=== PATIENT | male | born 1950 | race Two or more races ===

== ENCOUNTER 2019-09-28 09:48 | Inpatient (IN) | payer MEDICARE ==
[~2019-09-28] VITALS: Ht 177.8 cm; Wt 77.2 kg
[~2019-09-28 09:48] MED LIST: AMIO200T4 PO; AMOX500T86 PO; APIX5TAB PO; ASPI81CH43 PO; BISA-13 PO; CAR125T PO; DOXY-111 PO; FAMO20TA10 PO; FURO40TA4 PO; GLIP5TAB12 PO; LISI-648 PO
[2019-09-28] MEDS ORDERED: MIDAZOLAM HCL 5 MG/ML-1ML VIAL ONE (10:02)
[2019-09-28] MEDS ORDERED: MIDAZOLAM DRIP 50 mg/50mL 50 ML IV ONE (10:03)
[2019-09-28] MEDS ORDERED: NOREPINEPHRINE 8 MG/250ML KIT 250 ML IV ONE (10:03)
[2019-09-28] MEDS ORDERED: SODIUM CHLORIDE 0.9% 1,000 ML IVB ONE (10:33)
[2019-09-28] MEDS ORDERED: ACETAMINOPHEN 650 MG RECT SUPP PR ONE (10:35)
[2019-09-28] MEDS ORDERED: ACETAMINOPHEN 325 MG TAB PO ONE (10:45)
[2019-09-28] MEDS ORDERED: MIDAZOLAM HCL 5 MG/ML-1ML VIAL IV ONE (11:15)
[2019-09-28] MEDS: NOREPINEPHRINE 8 MG/250ML KIT 250 ML IV SCH ×3 (11:43→17:02)
[2019-09-28] MEDS: MIDAZOLAM DRIP 50 mg/50mL 50 ML IV SCH (11:59)
[2019-09-28 12:37] LABS: Lactic Acid w/Reflex 3.3 mmol/L (0.4-2.0)
[2019-09-28 12:48] LABS: BUN/Creatinine Ratio 12.8; Bilirubin, Total 2.4 mg/dL (0.2-1.0); Magnesium 2.5 mg/dL (1.6-2.6); Total Protein 5.4 g/dL (6.4-8.2)
[2019-09-28 13:02] LABS: Potassium 6.2 mmol/L (3.5-5.1)
[2019-09-28] MEDS ORDERED: SODIUM BICARBONATE 8.4 % INJ 50ML VIAL IV ONE (14:00)
[2019-09-28] MEDS ORDERED: CALCIUM CHL 100MG/ML 1,000 MG in D5W 5% 100 ML IV ONE (14:00)
[2019-09-28 14:16] VITALS: BP 105/75
[2019-09-28 15:52] VITALS: BP 105/75
[2019-09-28 16:21] VITALS: BP 135/81
[2019-09-28 16:59] LABS: INR 1.18 (0.9-1.15); Partial Thromboplastin Time 34.8 sec (23.0-31.2)
[2019-09-28 17:13] LABS: Hematocrit 38.5 % (41.0-53.0); Mean Corpuscular Hemoglobin 32.1 pg (28.0-32.0); Mean Corpuscular Hgb Conc. 31.3 g/dL (32.0-36.0); Mean Corpuscular Volume 102.6 fL (80.0-100.0); Platelet Count (auto) 144 10^3/uL (140-450); Red Blood Cells 3.75 10^6/uL (4.5-5.90); Red Cell Distribution Width 15.1 % (11.8-14.3)
[2019-09-28 17:15] LABS: Basophils % (manual) 0 (0.0-2.0); Blast Cells 0; Eosinophils % (manual) 0 (0-7); Metamyelocytes % 0; Myelocytes % 0; Promyelocytes % 0; Reactive Lymphocytes 0
[2019-09-28 17:50] LABS: Band Neutrophils % (manual) 20; Lymphocytes % (manual) 2 (10.0-50.0)
[2019-09-28 17:51] LABS: Monocytes % (manual) 4 (0-12)
[2019-09-28] MEDS ORDERED: cefTRIAXone 1GM/50ML D5W 50 ML IV ONE ×2 (18:15→19:00)
[2019-09-28] MEDS ORDERED: AMIODARONE 450mg/250ml AE 250 ML IV SCH (18:28)
[2019-09-28] MEDS ORDERED: ACETAMINOPHEN 500 MG TAB PO PRN (18:30)
[2019-09-28] MEDS ORDERED: DEXTROSE (50%) 50ML SYRG IV ONE (18:30)
[2019-09-28] MEDS ORDERED: SODIUM CHLORIDE 0.9% 2,250 ML IV ONE (18:30)
[2019-09-28] MEDS ORDERED: AMIODARONE HCL 150 MG in D5W 5% 100 ML IV ONE (18:30)
[2019-09-28] MEDS ORDERED: NITROGLYCERIN 0.4 MG SL TAB SL PRN (18:30)
[2019-09-28] MEDS ORDERED: SODIUM ZIRCONIUM CYCL 10 GM PAK GT ONE (18:30)
[2019-09-28] MEDS ORDERED: SODIUM BICARBONATE 8.4% INJ 50ML SYRINGE IV ONE (18:30)
[2019-09-28] MEDS ORDERED: MORPHINE SULF INJ 2 MG/ML SYRINGE 1ML IV PRN ×2 (18:30→19:00)
[2019-09-28] MEDS ORDERED: InsuLIN REG 1unit/0.01ml Soln (100units/ml) IV ONE (18:30)
[2019-09-28] MEDS ORDERED: FUROSEMIDE 40 MG/4 ML VIAL IV ONE (18:30)
[2019-09-28 18:40] VITALS: BP 112/77
[2019-09-28] MEDS ORDERED: METOPROLOL TARTRATE 1MG/1ML-5ML VIAL IV ONE (18:45)
[2019-09-28] MEDS ORDERED: ONDANSETRON HCL 4 MG/2 ML VIAL IV PRN (19:00)
[2019-09-28] MEDS: SODIUM CHLORIDE 0.9% 1,000 ML IV SCH (19:55)
[2019-09-28] MEDS: DexAMETHasone SOD PHOS 10MG/1ML VIAL INJ IV SCH (20:48)
[2019-09-28 20:50] LABS: Amylase 94 U/L (25-115); Lipase 24 U/L (73-393)
[2019-09-28 21:12] LABS: CRP High Sensitivity > 19.0 mg/dL (< 0.3)
[2019-09-28] MEDS: ASCORBIC ACID 1,000 MG TAB PO SCH (21:46)
[2019-09-28] MEDS: ZINC SULFATE 220mg CAP or TAB PO SCH (21:47)
[2019-09-28] MEDS: CHOLECALCIFEROL (VITD3) 2,000 UNIT CAP PO SCH (21:48)
[2019-09-28] MEDS ORDERED: ALBUTEROL SULF HFA 90MCG INH 200DOSE IN SCH (22:00)
[2019-09-28 22:04] VITALS: BP 94/66
[2019-09-29] VITALS (39 sets, daily range): BP systolic 79–155; BP diastolic 45–123
[2019-09-29] MEDS ORDERED: ENOXAPARIN SOD 80 MG/0.8ML SYRINGE SC SCH (01:30)
[2019-09-29] MEDS: AMIODARONE 450mg/250ml AE 250 ML IV SCH ×2 (01:50→15:28)
[2019-09-29 01:57] LABS: BUN/Creatinine Ratio 13.3; Calcium 7.3 mg/dL (8.5-10.1)
[2019-09-29 02:48] LABS: Potassium 6.7 mmol/L (3.5-5.1)
[2019-09-29] MEDS: SODIUM CHLORIDE 0.9% 1,000 ML IV SCH (04:58)
[2019-09-29] MEDS ORDERED: SODIUM BICARBONATE 50ML VIAL 100 ML in SODIUM CHLORIDE 0.9% 1,000 ML IV SCH (07:00)
[2019-09-29] MEDS ORDERED: SODIUM CHLORIDE 0.9% 1,000 ML IV ONE (07:00)
[2019-09-29] MEDS ORDERED: SODIUM BICARBONATE 8.4 % INJ 50ML VIAL IV ONE ×2 (07:03→15:45)
[2019-09-29 07:12] LABS: Eosinophils # (auto) 0 10 ^3/uL (0-0.8); Hematocrit 41.6 % (41.0-53.0); Hemoglobin 13.1 g/dL (13.5-17.5); Lymphocytes # (auto) 0.3 10 ^3/uL (0.4-5.4); Neutrophils % (auto) 94.7 % (37.0-80.0); Nucleated Red Blood Cells % 0.1 %
[2019-09-29 07:14] LABS: Basophils # (auto) 0 10 ^3/uL (0-0.2); Basophils % (auto) 0.1 % (0.0-2.0); Eosinophils % (auto) 0.2 % (0.0-7.0); Lymphocytes % (auto) 1.3 % (10.0-50.0); Mean Corpuscular Hemoglobin 32.5 pg (28.0-32.0); Mean Corpuscular Hgb Conc. 31.4 g/dL (32.0-36.0); Mean Corpuscular Volume 103.4 fL (80.0-100.0); Monocytes # (auto) 0.9 10 ^3/uL (0-1.3); Monocytes % (auto) 3.7 % (0.0-12.0); Platelet Count (auto) 150 10^3/uL (140-450); Red Blood Cells 4.03 10^6/uL (4.5-5.90); Red Cell Distribution Width 15.3 % (11.8-14.3); White Blood Cell 23.2 10^3/uL (4.4-10.8)
[2019-09-29 07:55] LABS: Albumin 2.2 g/dL (3.4-5.0); Bilirubin, Total 1.7 mg/dL (0.2-1.0); Calcium 7.3 mg/dL (8.5-10.1); Total Protein 6.2 g/dL (6.4-8.2)
[2019-09-29] MEDS ORDERED: cefTRIAXone 1GM/50ML D5W 50 ML IV SCH (09:00)
[2019-09-29] MEDS ORDERED: DEXTROSE (50%) 50ML SYRG IV ONE ×2 (09:15→15:45)
[2019-09-29] MEDS ORDERED: InsuLIN REG 1unit/0.01ml Soln (100units/ml) IV ONE ×2 (09:15→15:45)
[2019-09-29] MEDS ORDERED: CALCIUM CHL 100MG/ML 1,000 MG in D5W 5% 100 ML IV ONE (09:15)
[2019-09-29] MEDS ORDERED: InsuLIN REG 1unit/0.01ml Soln (100units/ml) ONE (09:32)
[2019-09-29] MEDS: DexAMETHasone SOD PHOS 10MG/1ML VIAL INJ IV SCH (09:57)
[2019-09-29] MEDS: ASCORBIC ACID 1,000 MG TAB PO SCH (10:00)
[2019-09-29] MEDS: ZINC SULFATE 220mg CAP or TAB PO SCH (10:00)
[2019-09-29] MEDS ORDERED: SODIUM ZIRCONIUM CYCL 10 GM PAK GT SCH (10:00)
[2019-09-29] MEDS: CHOLECALCIFEROL (VITD3) 2,000 UNIT CAP PO SCH (10:00)
[2019-09-29] MEDS ORDERED: FUROSEMIDE 100 MG/10ML VIAL IV ONE (11:00)
[2019-09-29] MEDS: SODIUM BICARBONATE 50ML VIAL 100 ML in SOD CHL 0.45% 1,000 ML IV SCH ×2 (11:00→22:00)
[2019-09-29] MEDS ORDERED: AMIODARONE HCL 150 MG in D5W 5% 100 ML IV ONE (11:45)
[2019-09-29] MEDS ORDERED: PHENYLEPHRINE IV 250 ML IV SCH (11:45)
[2019-09-29] MEDS: PHENYLEPHRINE INJ 40 MG in SODIUM CHL 0.9% 250 ML IV SCH (11:56)
[2019-09-29] MEDS: MIDAZOLAM DRIP 50 mg/50mL 50 ML IV SCH (11:59)
[2019-09-29 12:30] LABS: Creatinine, Urine 127 mg/dL (30.0-125.0); Sodium Urine 33 mmol/L (40-220)
[2019-09-29 12:50] LABS: Protein, Urine 450.9 mg/dL (0.0-11.9)
[2019-09-29] MEDS ORDERED: CLOPIDOGREL BISULFATE 75 MG TAB PO ONE (13:45)
[2019-09-29] MEDS ORDERED: ASPirin 81 mg TAB PO ONE (13:45)
[2019-09-29] MEDS: SODIUM ZIRCONIUM CYCL 10 GM PAK PO SCH ×2 (14:00→22:27)
[2019-09-29] MEDS ORDERED: LIDOCAINE 50MG/5ML INJ 5ML SYRINGE IV ONE (14:30)
[2019-09-29] MEDS: DIGOXIN (250MCG/ML) 2 ML AMPULE IV SCH ×2 (14:30→21:00)
[2019-09-29] MEDS ORDERED: LIDOCAINE 4MG/ML IV SOLN 500 ML IV SCH (14:30)
[2019-09-29 15:00] LABS: BUN/Creatinine Ratio 14.5; Calcium 7.7 mg/dL (8.5-10.1)
[2019-09-29 15:16] LABS: Potassium 6.5 mmol/L (3.5-5.1)
[2019-09-29 15:21] LABS: Urine Bacteria NONE SEEN /hpf (None Seen); Urine Blood 3+ /uL (Negative); Urine Mucus FEW (None Seen); Urine Specific Gravity 1.017 (1.001-1.035); Urine WBC 59 /hpf (0 - 3)
[2019-09-29] MEDS ORDERED: ALBUTEROL SULF 2.5 MG/0.5ML(0.5%) NEB SOLN NEB ONE (15:45)
[2019-09-29] MEDS ORDERED: CALCIUM GLUC 4.65meq/50ml D5AE 50 ML IV ONE (15:45)
[2019-09-29] MEDS ORDERED: MICAFUNGIN SODIUM 100 MG in SODIUM CHL 0.9% 100 ML IV ONE (16:15)
[2019-09-29] MEDS ORDERED: SODIUM CHLORIDE 0.9% 1,000 ML IV SCH (16:15)
[2019-09-29] MEDS ORDERED: HYDROCORTISONE SOD SUCC 100 MG/2ML INJ VIAL IV ONE (16:15)
[2019-09-29] MEDS ORDERED: PANTOPRAZOLE 40 MG/10 ML VIAL INJ IV ONE (16:30)
[2019-09-29] MEDS: LINEZOLID 600MG/300ML 300 ML IV SCH (19:00)
[2019-09-29 19:30] LABS: BUN/Creatinine Ratio 14.8; Calcium 7.4 mg/dL (8.5-10.1)
[2019-09-29 19:38] LABS: Potassium 5.7 mmol/L (3.5-5.1)
[2019-09-29] MEDS: MEROPENEM 500MG IVPB 50 ML IV SCH (22:26)
[2019-09-29] MEDS: HYDROCORTISONE SOD SUCC 100 MG/2ML INJ VIAL IV SCH (22:27)
[2019-09-30] VITALS (94 sets, daily range): BP systolic 85–133; BP diastolic 54–97
[2019-09-30 01:54] LABS: Calcium 6.8 mg/dL (8.5-10.1)
[2019-09-30 01:56] LABS: Potassium 5.8 mmol/L (3.5-5.1)
[2019-09-30] MEDS: SODIUM BICARBONATE 50ML VIAL 100 ML in SOD CHL 0.45% 1,000 ML IV SCH ×3 (03:45→20:42)
[2019-09-30 04:52] LABS: Basophils # (auto) 0 10 ^3/uL (0-0.2); Basophils % (auto) 0.1 % (0.0-2.0); Eosinophils # (auto) 0 10 ^3/uL (0-0.8); Hematocrit 38.3 % (41.0-53.0); Hemoglobin 12.3 g/dL (13.5-17.5); Lymphocytes # (auto) 0.3 10 ^3/uL (0.4-5.4); Lymphocytes % (auto) 1.6 % (10.0-50.0); Mean Corpuscular Hemoglobin 32.6 pg (28.0-32.0); Mean Corpuscular Hgb Conc. 32.2 g/dL (32.0-36.0); Mean Corpuscular Volume 101.2 fL (80.0-100.0); Monocytes # (auto) 1.4 10 ^3/uL (0-1.3); Monocytes % (auto) 6.5 % (0.0-12.0); Neutrophils # (auto) 19.6 10 ^3/uL (1.6-8.6); Neutrophils % (auto) 91.8 % (37.0-80.0); Nucleated Red Blood Cells % 0.3 %; Platelet Count (auto) 128 10^3/uL (140-450); Red Blood Cells 3.78 10^6/uL (4.5-5.90); White Blood Cell 21.4 10^3/uL (4.4-10.8)
[2019-09-30 05:08] LABS: Calcium 6.8 mg/dL (8.5-10.1)
[2019-09-30 05:17] LABS: BUN/Creatinine Ratio 15.9
[2019-09-30] MEDS: PHENYLEPHRINE INJ 40 MG in SODIUM CHL 0.9% 250 ML IV SCH ×2 (05:41→21:16)
[2019-09-30] MEDS: SODIUM ZIRCONIUM CYCL 10 GM PAK PO SCH ×3 (05:41→21:37)
[2019-09-30] MEDS: AMIODARONE 450mg/250ml AE 250 ML IV SCH ×3 (06:28→20:42)
[2019-09-30] MEDS: LINEZOLID 600MG/300ML 300 ML IV SCH ×2 (06:34→18:51)
[2019-09-30] MEDS: MIDAZOLAM DRIP 50 mg/50mL 50 ML IV SCH ×2 (06:35→16:19)
[2019-09-30] MEDS: MICAFUNGIN SODIUM 100 MG in SODIUM CHL 0.9% 100 ML IV SCH (09:06)
[2019-09-30] MEDS ORDERED: DEXTROSE (50%) 50ML SYRG IV ONE (10:30)
[2019-09-30] MEDS ORDERED: BUMETANIDE 2.5mg/10ml (0.25 mg/ml) INJ IV ONE ×2 (10:30)
[2019-09-30] MEDS ORDERED: InsuLIN REG 1unit/0.01ml Soln (100units/ml) IV ONE (10:30)
[2019-09-30] MEDS ORDERED: CALCIUM GLUC 4.65meq/50ml D5AE 50 ML IV ONE (10:30)
[2019-09-30] MEDS: PANTOPRAZOLE 40 MG/10 ML VIAL INJ IV SCH (10:41)
[2019-09-30] MEDS: HYDROCORTISONE SOD SUCC 100 MG/2ML INJ VIAL IV SCH ×2 (10:42→21:37)
[2019-09-30] MEDS: ASPirin 81 mg TAB PO SCH (10:42)
[2019-09-30] MEDS: CLOPIDOGREL BISULFATE 75 MG TAB PO SCH (10:43)
[2019-09-30] MEDS: ASCORBIC ACID 1,000 MG TAB PO SCH (10:44)
[2019-09-30] MEDS: CHOLECALCIFEROL (VITD3) 2,000 UNIT CAP PO SCH (10:44)
[2019-09-30] MEDS: ENOXAPARIN SOD 30 MG/0.3 ML SYRINGE SC SCH (10:45)
[2019-09-30] MEDS: MEROPENEM 500MG IVPB 50 ML IV SCH ×2 (11:49→21:38)
[2019-09-30] MEDS: FUROSEMIDE INJECTION 100 MG in D5W 5% 100 ML IV SCH ×4 (11:49→23:01)
[2019-09-30 14:44] LABS: BUN/Creatinine Ratio 18.1; Calcium 6.6 mg/dL (8.5-10.1); Potassium 4.9 mmol/L (3.5-5.1)
[2019-10-01] VITALS (93 sets, daily range): BP systolic 90–125; BP diastolic 48–79
[2019-10-01] MEDS: FUROSEMIDE INJECTION 100 MG in D5W 5% 100 ML IV SCH ×4 (04:01→17:41)
[2019-10-01 04:35] LABS: Basophils # (auto) 0 10 ^3/uL (0-0.2); Basophils % (auto) 0.1 % (0.0-2.0); Eosinophils # (auto) 0 10 ^3/uL (0-0.8); Hematocrit 36.2 % (41.0-53.0); Hemoglobin 11.8 g/dL (13.5-17.5); Lymphocytes # (auto) 0.3 10 ^3/uL (0.4-5.4); Lymphocytes % (auto) 2.5 % (10.0-50.0); Mean Corpuscular Hemoglobin 32.6 pg (28.0-32.0); Mean Corpuscular Hgb Conc. 32.6 g/dL (32.0-36.0); Monocytes # (auto) 0.6 10 ^3/uL (0-1.3); Monocytes % (auto) 4.3 % (0.0-12.0); Neutrophils # (auto) 12.1 10 ^3/uL (1.6-8.6); Neutrophils % (auto) 93.1 % (37.0-80.0); Nucleated Red Blood Cells % 0.2 %; Platelet Count (auto) 105 10^3/uL (140-450); Red Blood Cells 3.62 10^6/uL (4.5-5.90); Red Cell Distribution Width 14.8 % (11.8-14.3)
[2019-10-01 04:56] LABS: Potassium 4.1 mmol/L (3.5-5.1)
[2019-10-01 05:07] LABS: Albumin 1.8 g/dL (3.4-5.0); BUN/Creatinine Ratio 21.1; Bilirubin, Total 0.8 mg/dL (0.2-1.0); Total Protein 4.9 g/dL (6.4-8.2)
[2019-10-01 05:15] LABS: Calcium 5.7 mg/dL (8.5-10.1)
[2019-10-01 06:13] LABS: INR 1.66 (0.9-1.15); Partial Thromboplastin Time 41.4 sec (23.0-31.2)
[2019-10-01] MEDS: LINEZOLID 600MG/300ML 300 ML IV SCH (06:49)
[2019-10-01] MEDS: SODIUM BICARBONATE 50ML VIAL 100 ML in SOD CHL 0.45% 1,000 ML IV SCH (06:49)
[2019-10-01] MEDS: MIDAZOLAM DRIP 50 mg/50mL 50 ML IV SCH ×2 (06:49→21:30)
[2019-10-01] MEDS: MICAFUNGIN SODIUM 100 MG in SODIUM CHL 0.9% 100 ML IV SCH (08:21)
[2019-10-01] MEDS ORDERED: SODIUM CHLORIDE 0.9% 1,000 ML IV SCH (09:15)
[2019-10-01] MEDS: ASPirin 81 mg TAB PO SCH (09:56)
[2019-10-01] MEDS: CLOPIDOGREL BISULFATE 75 MG TAB PO SCH (09:56)
[2019-10-01] MEDS: PANTOPRAZOLE 40 MG/10 ML VIAL INJ IV SCH (09:56)
[2019-10-01] MEDS: ENOXAPARIN SOD 30 MG/0.3 ML SYRINGE SC SCH (09:56)
[2019-10-01] MEDS: MEROPENEM 500MG IVPB 50 ML IV SCH ×2 (09:56→21:36)
[2019-10-01] MEDS: HYDROCORTISONE SOD SUCC 100 MG/2ML INJ VIAL IV SCH ×2 (09:56→21:36)
[2019-10-01] MEDS: SODIUM BICARBONATE 50ML VIAL 50 ML in SOD CHL 0.45% 1,000 ML IV SCH ×3 (10:54→22:00)
[2019-10-01] MEDS: NYSTATIN (MOUTH-THROAT) 500,000 UNITS/5 ML SUSP MT SCH ×3 (11:58→21:36)
[2019-10-01] MEDS: AMIODARONE 450mg/250ml AE 250 ML IV SCH (12:49)
[2019-10-01] MEDS: CALCIUM ACETATE 667 MG CAP NG SCH ×2 (13:27→21:36)
[2019-10-01] MEDS: PHENYLEPHRINE INJ 40 MG in SODIUM CHL 0.9% 250 ML IV SCH (21:39)
[2019-10-02] VITALS (103 sets, daily range): BP systolic 94–143; BP diastolic 59–89
[2019-10-02] MEDS: FUROSEMIDE INJECTION 100 MG in D5W 5% 100 ML IV SCH ×4 (04:30→08:32)
[2019-10-02] MEDS: AMIODARONE 450mg/250ml AE 250 ML IV SCH (04:30)
[2019-10-02 05:21] LABS: Basophils # (auto) 0 10 ^3/uL (0-0.2); Basophils % (auto) 0.2 % (0.0-2.0); Eosinophils # (auto) 0 10 ^3/uL (0-0.8); Hematocrit 41.5 % (41.0-53.0); Hemoglobin 13.6 g/dL (13.5-17.5); Lymphocytes # (auto) 0.4 10 ^3/uL (0.4-5.4); Lymphocytes % (auto) 3.4 % (10.0-50.0); Mean Corpuscular Hemoglobin 32.3 pg (28.0-32.0); Mean Corpuscular Hgb Conc. 32.8 g/dL (32.0-36.0); Mean Corpuscular Volume 98.6 fL (80.0-100.0); Monocytes # (auto) 0.6 10 ^3/uL (0-1.3); Monocytes % (auto) 5.4 % (0.0-12.0); Neutrophils # (auto) 10.1 10 ^3/uL (1.6-8.6); Nucleated Red Blood Cells % 0.2 %; Platelet Count (auto) 122 10^3/uL (140-450); Red Blood Cells 4.21 10^6/uL (4.5-5.90); Red Cell Distribution Width 14.4 % (11.8-14.3); White Blood Cell 11.1 10^3/uL (4.4-10.8)
[2019-10-02 05:41] LABS: Potassium 3.4 mmol/L (3.5-5.1)
[2019-10-02 05:50] LABS: Albumin 1.7 g/dL (3.4-5.0); BUN/Creatinine Ratio 29.4; Bilirubin, Total 0.8 mg/dL (0.2-1.0); Calcium 6.6 mg/dL (8.5-10.1); Total Protein 4.8 g/dL (6.4-8.2)
[2019-10-02] MEDS: SODIUM BICARBONATE 50ML VIAL 50 ML in SOD CHL 0.45% 1,000 ML IV SCH ×2 (06:15→08:32)
[2019-10-02] MEDS: CALCIUM ACETATE 667 MG CAP NG SCH ×3 (06:29→21:43)
[2019-10-02] MEDS: NYSTATIN (MOUTH-THROAT) 500,000 UNITS/5 ML SUSP MT SCH ×4 (06:29→21:43)
[2019-10-02] MEDS: MIDAZOLAM DRIP 50 mg/50mL 50 ML IV SCH (06:30)
[2019-10-02] MEDS: PHENYLEPHRINE INJ 40 MG in SODIUM CHL 0.9% 250 ML IV SCH (06:36)
[2019-10-02] MEDS: MICAFUNGIN SODIUM 100 MG in SODIUM CHL 0.9% 100 ML IV SCH (08:31)
[2019-10-02] MEDS ORDERED: POTASSIUM CHLORIDE 40 MEQ, LIDOCAINE 1% (LOCAL ANESTH.) 4 ML in SODIUM CHL 0.9% 100 ML IV ONE (10:00)
[2019-10-02] MEDS ORDERED: POTASSIUM EFFERVESENT TAB 25 MEQ PO ONE (10:00)
[2019-10-02] MEDS: MEROPENEM 500MG IVPB 50 ML IV SCH ×2 (10:19→21:43)
[2019-10-02] MEDS: ENOXAPARIN SOD 30 MG/0.3 ML SYRINGE SC SCH (10:35)
[2019-10-02] MEDS: CLOPIDOGREL BISULFATE 75 MG TAB PO SCH (10:35)
[2019-10-02] MEDS: ASPirin 81 mg TAB PO SCH (10:35)
[2019-10-02] MEDS: HYDROCORTISONE SOD SUCC 100 MG/2ML INJ VIAL IV SCH ×2 (10:35→21:43)
[2019-10-02] MEDS: PANTOPRAZOLE 40 MG/10 ML VIAL INJ IV SCH (10:35)
[2019-10-02 10:52] LABS: Magnesium 2.4 mg/dL (1.6-2.6); Phosphorus 7.6 mg/dL (2.5-4.90)
[2019-10-02] MEDS ORDERED: FUROSEMIDE INJECTION 100 MG in D5W 5% 100 ML IV SCH (13:15)
[2019-10-02] MEDS: CARVEDILOL 3.125 MG TAB PO SCH (21:43)
[2019-10-03] VITALS (85 sets, daily range): BP systolic 123–184; BP diastolic 33–104
[2019-10-03 04:55] LABS: Basophils # (auto) 0 10 ^3/uL (0-0.2); Basophils % (auto) 0.3 % (0.0-2.0); Eosinophils # (auto) 0 10 ^3/uL (0-0.8); Hematocrit 45.1 % (41.0-53.0); Hemoglobin 14.9 g/dL (13.5-17.5); Lymphocytes # (auto) 0.4 10 ^3/uL (0.4-5.4); Mean Corpuscular Hemoglobin 32.6 pg (28.0-32.0); Mean Corpuscular Hgb Conc. 33.1 g/dL (32.0-36.0); Mean Corpuscular Volume 98.6 fL (80.0-100.0); Monocytes # (auto) 0.5 10 ^3/uL (0-1.3); Monocytes % (auto) 5.6 % (0.0-12.0); Neutrophils # (auto) 8.5 10 ^3/uL (1.6-8.6); Neutrophils % (auto) 90.1 % (37.0-80.0); Nucleated Red Blood Cells % 0.2 %; Platelet Count (auto) 143 10^3/uL (140-450); Red Blood Cells 4.57 10^6/uL (4.5-5.90); Red Cell Distribution Width 14.2 % (11.8-14.3); White Blood Cell 9.5 10^3/uL (4.4-10.8)
[2019-10-03 05:15] LABS: Calcium 7.7 mg/dL (8.5-10.1); Potassium 3.3 mmol/L (3.5-5.1)
[2019-10-03 05:18] LABS: BUN/Creatinine Ratio 36.4; Total Protein 5.3 g/dL (6.4-8.2)
[2019-10-03] MEDS: CALCIUM ACETATE 667 MG CAP NG SCH ×3 (06:00→22:05)
[2019-10-03] MEDS: NYSTATIN (MOUTH-THROAT) 500,000 UNITS/5 ML SUSP MT SCH ×4 (06:10→22:05)
[2019-10-03] MEDS ORDERED: POTASSIUM CHL 20MEQ/100ML 100 ML IV ONE ×2 (06:36→06:45)
[2019-10-03] MEDS: CARVEDILOL 3.125 MG TAB PO SCH ×2 (10:13→22:06)
[2019-10-03] MEDS: CLOPIDOGREL BISULFATE 75 MG TAB PO SCH (10:13)
[2019-10-03] MEDS: ASPirin 81 mg TAB PO SCH (10:13)
[2019-10-03] MEDS: MICAFUNGIN SODIUM 100 MG in SODIUM CHL 0.9% 100 ML IV SCH (10:14)
[2019-10-03] MEDS: PANTOPRAZOLE 40 MG/10 ML VIAL INJ IV SCH (10:14)
[2019-10-03] MEDS: MEROPENEM 500MG IVPB 50 ML IV SCH ×2 (10:14→22:05)
[2019-10-03] MEDS: ENOXAPARIN SOD 30 MG/0.3 ML SYRINGE SC SCH (10:35)
[2019-10-03] MEDS ORDERED: POTASSIUM EFFERVESENT TAB 25 MEQ GT ONE (11:15)
[2019-10-03] MEDS ORDERED: FUROSEMIDE 40 MG/4 ML VIAL IV ONE (11:15)
[2019-10-03] MEDS: MIDAZOLAM DRIP 50 mg/50mL 50 ML IV SCH (11:59)
[2019-10-03 15:22] LABS: Calcium 8.1 mg/dL (8.5-10.1); Potassium 3.5 mmol/L (3.5-5.1)
[2019-10-03] MEDS ORDERED: FUROSEMIDE 40 MG/4 ML VIAL IV SCH (18:00)
[2019-10-03] MEDS: LABETALOL HCL 5 MG/ML 4ML SYRINGE IV PRN ×2 (18:40→22:42)
[2019-10-03] MEDS: Nepro With Carb Steady 1 Liter Bottle GT SCH (19:13)
[2019-10-03] MEDS ORDERED: hydrALAZINE HCL 20 MG/ML VL IV PRN (21:15)
[2019-10-03] MEDS ORDERED: FUROSEMIDE 20 MG/2 ML VIAL IV SCH (22:00)
[2019-10-03] MEDS: POTASSIUM EFFERVESENT TAB 25 MEQ PO SCH (22:06)
[2019-10-03] MEDS ORDERED: DEXTROSE (50%) 50ML SYRG IV PRN (23:45)
[2019-10-03] MEDS ORDERED: hydrALAZINE HCL 20 MG/ML VL ONE (23:53)
[2019-10-04] VITALS (60 sets, daily range): BP systolic 85–177; BP diastolic 44–110
[2019-10-04] MEDS: ACCU-CHEK COMFORT CURVE STRIP VI SCH ×6 (00:18→20:20)
[2019-10-04] MEDS: InsuLIN REG 1unit/0.01ml Soln (100units/ml) SC SCH ×6 (00:56→20:18)
[2019-10-04] MEDS ORDERED: hydrALAZINE HCL 20 MG/ML VL ONE ×3 (02:20→21:13)
[2019-10-04] MEDS: hydrALAZINE HCL 20 MG/ML VL IV SCH ×4 (02:30→14:00)
[2019-10-04] MEDS: cloNIDine HCL 0.1 MG TAB PO SCH ×2 (02:31→21:30)
[2019-10-04] MEDS: NITROGLYCERIN 2% OINT 1GM PKG TD SCH ×3 (02:32→18:00)
[2019-10-04 05:11] LABS: Basophils # (auto) 0.1 10 ^3/uL (0-0.2); Basophils % (auto) 0.3 % (0.0-2.0); Eosinophils # (auto) 0 10 ^3/uL (0-0.8); Eosinophils % (auto) 0.1 % (0.0-7.0); Hemoglobin 15.5 g/dL (13.5-17.5); Lymphocytes # (auto) 0.9 10 ^3/uL (0.4-5.4); Lymphocytes % (auto) 4.9 % (10.0-50.0); Mean Corpuscular Hemoglobin 32.9 pg (28.0-32.0); Mean Corpuscular Hgb Conc. 33.6 g/dL (32.0-36.0); Monocytes # (auto) 1.2 10 ^3/uL (0-1.3); Monocytes % (auto) 6.7 % (0.0-12.0); Neutrophils # (auto) 15.8 10 ^3/uL (1.6-8.6); Nucleated Red Blood Cells % 0.1 %; Platelet Count (auto) 175 10^3/uL (140-450); Red Cell Distribution Width 14.8 % (11.8-14.3); White Blood Cell 17.9 10^3/uL (4.4-10.8)
[2019-10-04 05:26] LABS: Potassium 3.3 mmol/L (3.5-5.1)
[2019-10-04 05:32] LABS: Albumin 2.3 g/dL (3.4-5.0); BUN/Creatinine Ratio 40.8; Bilirubin, Total 1.6 mg/dL (0.2-1.0); Total Protein 5.9 g/dL (6.4-8.2)
[2019-10-04] MEDS: CALCIUM ACETATE 667 MG CAP NG SCH ×3 (05:55→21:46)
[2019-10-04] MEDS: NYSTATIN (MOUTH-THROAT) 500,000 UNITS/5 ML SUSP MT SCH ×4 (05:55→21:46)
[2019-10-04] MEDS: FLUCONAZOLE 200MG/100ML 100 ML IV SCH (09:36)
[2019-10-04] MEDS: MEROPENEM 500MG IVPB 50 ML IV SCH ×2 (09:36→21:46)
[2019-10-04] MEDS: POTASSIUM EFFERVESENT TAB 25 MEQ PO SCH ×2 (09:37→21:46)
[2019-10-04] MEDS: PANTOPRAZOLE 40 MG/10 ML VIAL INJ IV SCH (09:37)
[2019-10-04] MEDS: ENOXAPARIN SOD 30 MG/0.3 ML SYRINGE SC SCH (09:37)
[2019-10-04] MEDS: CLOPIDOGREL BISULFATE 75 MG TAB PO SCH (09:38)
[2019-10-04] MEDS: CARVEDILOL 3.125 MG TAB PO SCH (09:38)
[2019-10-04] MEDS: ASPirin 81 mg TAB PO SCH (09:40)
[2019-10-04] MEDS: LABETALOL HCL 5 MG/ML 4ML SYRINGE IV PRN (17:18)
[2019-10-04] MEDS: cloNIDine HCL 0.1 MG TAB PO PRN ×2 (18:36→21:25)
[2019-10-04] MEDS: MIDAZOLAM DRIP 50 mg/50mL 50 ML IV SCH (20:20)
[2019-10-04] MEDS: CARVEDILOL 12.5 MG TAB PO SCH (21:47)
[2019-10-05] VITALS (74 sets, daily range): BP systolic 88–172; BP diastolic 47–89
[2019-10-05] MEDS: ACCU-CHEK COMFORT CURVE STRIP VI SCH ×7 (00:42→23:39)
[2019-10-05] MEDS: hydrALAZINE HCL 20 MG/ML VL IV SCH ×3 (00:48→06:17)
[2019-10-05] MEDS: InsuLIN REG 1unit/0.01ml Soln (100units/ml) SC SCH ×7 (00:51→23:40)
[2019-10-05 04:25] LABS: Basophils # (auto) 0 10 ^3/uL (0-0.2); Basophils % (auto) 0.1 % (0.0-2.0); Eosinophils # (auto) 0 10 ^3/uL (0-0.8); Hematocrit 42.5 % (41.0-53.0); Hemoglobin 14.1 g/dL (13.5-17.5); Lymphocytes # (auto) 0.9 10 ^3/uL (0.4-5.4); Lymphocytes % (auto) 5.1 % (10.0-50.0); Mean Corpuscular Hgb Conc. 33.3 g/dL (32.0-36.0); Monocytes % (auto) 5.8 % (0.0-12.0); Neutrophils # (auto) 14.9 10 ^3/uL (1.6-8.6); Nucleated Red Blood Cells % 0.2 %; Platelet Count (auto) 157 10^3/uL (140-450); Red Blood Cells 4.29 10^6/uL (4.5-5.90); Red Cell Distribution Width 14.9 % (11.8-14.3); White Blood Cell 16.8 10^3/uL (4.4-10.8)
[2019-10-05 04:41] LABS: Albumin 2.3 g/dL (3.4-5.0); Calcium 8.2 mg/dL (8.5-10.1); Potassium 3.2 mmol/L (3.5-5.1)
[2019-10-05 04:45] LABS: BUN/Creatinine Ratio 43.3; Bilirubin, Total 1.5 mg/dL (0.2-1.0); Total Protein 5.5 g/dL (6.4-8.2)
[2019-10-05] MEDS: NITROGLYCERIN 2% OINT 1GM PKG TD SCH ×4 (06:00→17:57)
[2019-10-05] MEDS: NYSTATIN (MOUTH-THROAT) 500,000 UNITS/5 ML SUSP MT SCH ×4 (06:17→21:40)
[2019-10-05] MEDS: CALCIUM ACETATE 667 MG CAP NG SCH ×3 (06:17→21:40)
[2019-10-05] MEDS ORDERED: LEVALBUTEROL HCL 1.25 MG/3 ML NEB NEB SCH (09:45)
[2019-10-05] MEDS ORDERED: LEVALBUTEROL HCL 1.25 MG/3 ML NEB NEB ONE (09:45)
[2019-10-05] MEDS ORDERED: FREE WATER GT SCH (10:00)
[2019-10-05] MEDS: IPRATROPIUM BROM 0.5 MG/2.5ML INH SOL NEB PRN ×4 (10:01→21:50)
[2019-10-05] MEDS: ACETYLCYSTEINE 10 %(100MG/ML) SOL 4ML NEB SCH ×4 (10:01→21:50)
[2019-10-05] MEDS: POTASSIUM EFFERVESENT TAB 25 MEQ PO SCH ×2 (10:07→21:41)
[2019-10-05] MEDS: PANTOPRAZOLE 40 MG/10 ML VIAL INJ IV SCH (10:08)
[2019-10-05] MEDS: ENOXAPARIN SOD 30 MG/0.3 ML SYRINGE SC SCH (10:08)
[2019-10-05] MEDS: CARVEDILOL 12.5 MG TAB PO SCH ×2 (10:10→21:41)
[2019-10-05] MEDS: FLUCONAZOLE 200MG/100ML 100 ML IV SCH (10:10)
[2019-10-05] MEDS: CLOPIDOGREL BISULFATE 75 MG TAB PO SCH (10:11)
[2019-10-05] MEDS: ASPirin 81 mg TAB PO SCH (10:11)
[2019-10-05] MEDS: MEROPENEM 500MG IVPB 50 ML IV SCH ×2 (10:38→21:40)
[2019-10-05] MEDS: MORPHINE SULF INJ 2 MG/ML SYRINGE 1ML IV PRN ×2 (10:39→20:32)
[2019-10-05] MEDS ORDERED: POTASSIUM EFFERVESENT TAB 25 MEQ GT ONE (10:45)
[2019-10-05] MEDS: hydrALAZINE HCL 10 MG TAB GT SCH ×2 (13:01→17:57)
[2019-10-05] MEDS: FREE WATER GT SCH ×4 (13:01→21:40)
[2019-10-05] MEDS: LEVALBUTEROL HCL 1.25 MG/3 ML NEB NEB SCH ×2 (14:01→21:50)
[2019-10-05] MEDS: cloNIDine HCL 0.1 MG TAB PO PRN (17:01)
[2019-10-06] VITALS (89 sets, daily range): BP systolic 91–175; BP diastolic 32–101
[2019-10-06] MEDS: hydrALAZINE HCL 10 MG TAB GT SCH ×5 (00:18→23:43)
[2019-10-06] MEDS: MORPHINE SULF INJ 2 MG/ML SYRINGE 1ML IV PRN ×3 (00:19→11:27)
[2019-10-06] MEDS: FREE WATER GT SCH ×7 (02:00→21:26)
[2019-10-06] MEDS: IPRATROPIUM BROM 0.5 MG/2.5ML INH SOL NEB PRN ×6 (02:06→22:29)
[2019-10-06] MEDS: ACETYLCYSTEINE 10 %(100MG/ML) SOL 4ML NEB SCH ×6 (02:06→22:29)
[2019-10-06] MEDS: LABETALOL HCL 5 MG/ML 4ML SYRINGE IV PRN ×2 (03:23→22:53)
[2019-10-06] MEDS: ACCU-CHEK COMFORT CURVE STRIP VI SCH ×5 (04:13→23:43)
[2019-10-06] MEDS: InsuLIN REG 1unit/0.01ml Soln (100units/ml) SC SCH ×5 (04:14→23:44)
[2019-10-06 04:49] LABS: Basophils # (auto) 0 10 ^3/uL (0-0.2); Basophils % (auto) 0.3 % (0.0-2.0); Eosinophils # (auto) 0 10 ^3/uL (0-0.8); Eosinophils % (auto) 0.3 % (0.0-7.0); Hematocrit 42.1 % (41.0-53.0); Hemoglobin 13.4 g/dL (13.5-17.5); Lymphocytes # (auto) 0.8 10 ^3/uL (0.4-5.4); Lymphocytes % (auto) 4.6 % (10.0-50.0); Mean Corpuscular Hemoglobin 32.3 pg (28.0-32.0); Mean Corpuscular Hgb Conc. 31.9 g/dL (32.0-36.0); Mean Corpuscular Volume 101.3 fL (80.0-100.0); Monocytes # (auto) 0.9 10 ^3/uL (0-1.3); Monocytes % (auto) 5.4 % (0.0-12.0); Neutrophils # (auto) 15.5 10 ^3/uL (1.6-8.6); Neutrophils % (auto) 89.4 % (37.0-80.0); Nucleated Red Blood Cells % 0.1 %; Platelet Count (auto) 147 10^3/uL (140-450); Red Blood Cells 4.15 10^6/uL (4.5-5.90); Red Cell Distribution Width 15.5 % (11.8-14.3); White Blood Cell 17.3 10^3/uL (4.4-10.8)
[2019-10-06 04:58] LABS: Albumin 2.2 g/dL (3.4-5.0); Calcium 8.6 mg/dL (8.5-10.1); Potassium 3.3 mmol/L (3.5-5.1)
[2019-10-06 05:03] LABS: BUN/Creatinine Ratio 44.8; Bilirubin, Total 1.3 mg/dL (0.2-1.0); Total Protein 5.4 g/dL (6.4-8.2)
[2019-10-06] MEDS: NYSTATIN (MOUTH-THROAT) 500,000 UNITS/5 ML SUSP MT SCH ×4 (05:29→21:54)
[2019-10-06] MEDS: CALCIUM ACETATE 667 MG CAP NG SCH ×3 (05:30→21:55)
[2019-10-06] MEDS: NITROGLYCERIN 2% OINT 1GM PKG TD SCH ×5 (05:31→23:43)
[2019-10-06] MEDS: cloNIDine HCL 0.1 MG TAB PO PRN ×4 (06:09→23:50)
[2019-10-06] MEDS: LEVALBUTEROL HCL 1.25 MG/3 ML NEB NEB SCH ×3 (06:20→22:29)
[2019-10-06] MEDS: ASPirin 81 mg TAB PO SCH (09:45)
[2019-10-06] MEDS: CLOPIDOGREL BISULFATE 75 MG TAB PO SCH (09:45)
[2019-10-06] MEDS: CARVEDILOL 12.5 MG TAB PO SCH ×2 (09:45→21:27)
[2019-10-06] MEDS: MEROPENEM 500MG IVPB 50 ML IV SCH ×2 (09:46→21:54)
[2019-10-06] MEDS: FLUCONAZOLE 200MG/100ML 100 ML IV SCH (09:46)
[2019-10-06] MEDS: ENOXAPARIN SOD 30 MG/0.3 ML SYRINGE SC SCH (09:46)
[2019-10-06] MEDS: PANTOPRAZOLE 40 MG/10 ML VIAL INJ IV SCH (09:46)
[2019-10-06] MEDS: POTASSIUM EFFERVESENT TAB 25 MEQ PO SCH ×2 (09:47→21:56)
[2019-10-06] MEDS ORDERED: DEXTROSE (50%) 50ML SYRG IV PRN (11:00)
[2019-10-06] MEDS: DexMEDEtomidine 400 MCG in D5W 5% 96 ML IV SCH (14:36)
[2019-10-07] VITALS (110 sets, daily range): BP systolic 78–165; BP diastolic 50–96
[2019-10-07] MEDS: MORPHINE SULF INJ 2 MG/ML SYRINGE 1ML IV PRN (00:07)
[2019-10-07] MEDS: FREE WATER GT SCH ×6 (02:00→21:44)
[2019-10-07] MEDS: IPRATROPIUM BROM 0.5 MG/2.5ML INH SOL NEB PRN ×5 (02:24→22:05)
[2019-10-07] MEDS: ACETYLCYSTEINE 10 %(100MG/ML) SOL 4ML NEB SCH ×5 (02:24→18:16)
[2019-10-07 04:52] LABS: Basophils # (auto) 0.1 10 ^3/uL (0-0.2); Basophils % (auto) 0.6 % (0.0-2.0); Eosinophils # (auto) 0.1 10 ^3/uL (0-0.8); Hematocrit 43.8 % (41.0-53.0); Hemoglobin 14.3 g/dL (13.5-17.5); Lymphocytes # (auto) 0.8 10 ^3/uL (0.4-5.4); Lymphocytes % (auto) 6.7 % (10.0-50.0); Mean Corpuscular Hemoglobin 32.6 pg (28.0-32.0); Mean Corpuscular Hgb Conc. 32.6 g/dL (32.0-36.0); Mean Corpuscular Volume 100.1 fL (80.0-100.0); Monocytes # (auto) 0.7 10 ^3/uL (0-1.3); Monocytes % (auto) 5.5 % (0.0-12.0); Neutrophils # (auto) 10.5 10 ^3/uL (1.6-8.6); Neutrophils % (auto) 86.2 % (37.0-80.0); Nucleated Red Blood Cells % 0.1 %; Platelet Count (auto) 132 10^3/uL (140-450); Red Blood Cells 4.37 10^6/uL (4.5-5.90); Red Cell Distribution Width 14.8 % (11.8-14.3); White Blood Cell 12.2 10^3/uL (4.4-10.8)
[2019-10-07 05:11] LABS: Albumin 2.2 g/dL (3.4-5.0); Calcium 8.3 mg/dL (8.5-10.1); Magnesium 3.1 mg/dL (1.6-2.6); Potassium 3.7 mmol/L (3.5-5.1)
[2019-10-07 05:16] LABS: BUN/Creatinine Ratio 40.4; Bilirubin, Total 1.5 mg/dL (0.2-1.0); Total Protein 5.6 g/dL (6.4-8.2)
[2019-10-07] MEDS: hydrALAZINE HCL 10 MG TAB GT SCH ×3 (05:45→18:29)
[2019-10-07] MEDS: LEVALBUTEROL HCL 1.25 MG/3 ML NEB NEB SCH ×3 (06:13→22:05)
[2019-10-07] MEDS: ACCU-CHEK COMFORT CURVE STRIP VI SCH ×3 (06:18→18:29)
[2019-10-07] MEDS: CALCIUM ACETATE 667 MG CAP NG SCH ×3 (06:18→21:44)
[2019-10-07] MEDS: NYSTATIN (MOUTH-THROAT) 500,000 UNITS/5 ML SUSP MT SCH ×4 (06:18→21:44)
[2019-10-07] MEDS: NITROGLYCERIN 2% OINT 1GM PKG TD SCH ×3 (06:19→18:19)
[2019-10-07] MEDS: InsuLIN REG 1unit/0.01ml Soln (100units/ml) SC SCH ×3 (06:21→18:00)
[2019-10-07] MEDS: DexMEDEtomidine 400 MCG in D5W 5% 96 ML IV SCH (06:54)
[2019-10-07] MEDS: CARVEDILOL 12.5 MG TAB PO SCH ×2 (10:00→22:45)
[2019-10-07] MEDS: FLUCONAZOLE 200MG/100ML 100 ML IV SCH (11:01)
[2019-10-07] MEDS: MEROPENEM 1GM IVPB 100 ML IV SCH ×2 (11:01→21:44)
[2019-10-07] MEDS: POTASSIUM EFFERVESENT TAB 25 MEQ PO SCH ×2 (11:02→21:44)
[2019-10-07] MEDS: PANTOPRAZOLE 40 MG/10 ML VIAL INJ IV SCH (11:02)
[2019-10-07] MEDS: ASPirin 81 mg TAB PO SCH (11:02)
[2019-10-07] MEDS: CLOPIDOGREL BISULFATE 75 MG TAB PO SCH (11:03)
[2019-10-07] MEDS: ENOXAPARIN SOD 30 MG/0.3 ML SYRINGE SC SCH (11:03)
[2019-10-07] MEDS: D5W 5% 1,000 ML IV SCH (11:04)
[2019-10-07] MEDS ORDERED: FUROSEMIDE 20 MG/2 ML VIAL IV ONE (16:30)
[2019-10-08] VITALS (99 sets, daily range): BP systolic 101–166; BP diastolic 62–90
[2019-10-08] MEDS: NITROGLYCERIN 2% OINT 1GM PKG TD SCH ×4 (00:24→17:57)
[2019-10-08] MEDS: hydrALAZINE HCL 10 MG TAB GT SCH ×4 (00:24→17:57)
[2019-10-08] MEDS: ACCU-CHEK COMFORT CURVE STRIP VI SCH ×4 (00:24→17:57)
[2019-10-08] MEDS: InsuLIN REG 1unit/0.01ml Soln (100units/ml) SC SCH ×4 (00:25→17:57)
[2019-10-08] MEDS: FREE WATER GT SCH ×2 (01:31→06:00)
[2019-10-08] MEDS: D5W 5% 1,000 ML IV SCH (01:31)
[2019-10-08] MEDS: ACETYLCYSTEINE 10 %(100MG/ML) SOL 4ML NEB SCH ×6 (01:48→22:11)
[2019-10-08] MEDS: IPRATROPIUM BROM 0.5 MG/2.5ML INH SOL NEB PRN ×3 (01:48→10:29)
[2019-10-08 04:34] LABS: Basophils # (auto) 0 10 ^3/uL (0-0.2); Basophils % (auto) 0.2 % (0.0-2.0); Eosinophils # (auto) 0.3 10 ^3/uL (0-0.8); Eosinophils % (auto) 2.2 % (0.0-7.0); Hematocrit 41.5 % (41.0-53.0); Hemoglobin 13.6 g/dL (13.5-17.5); Lymphocytes # (auto) 0.7 10 ^3/uL (0.4-5.4); Lymphocytes % (auto) 5.9 % (10.0-50.0); Mean Corpuscular Hemoglobin 32.9 pg (28.0-32.0); Mean Corpuscular Hgb Conc. 32.8 g/dL (32.0-36.0); Mean Corpuscular Volume 100.2 fL (80.0-100.0); Monocytes # (auto) 0.8 10 ^3/uL (0-1.3); Monocytes % (auto) 6.3 % (0.0-12.0); Neutrophils # (auto) 10.5 10 ^3/uL (1.6-8.6); Neutrophils % (auto) 85.4 % (37.0-80.0); Platelet Count (auto) 116 10^3/uL (140-450); Red Blood Cells 4.15 10^6/uL (4.5-5.90); Red Cell Distribution Width 14.7 % (11.8-14.3); White Blood Cell 12.3 10^3/uL (4.4-10.8)
[2019-10-08 04:49] LABS: BUN/Creatinine Ratio 35.9; Calcium 8.2 mg/dL (8.5-10.1); Potassium 3.5 mmol/L (3.5-5.1)
[2019-10-08] MEDS: LEVALBUTEROL HCL 1.25 MG/3 ML NEB NEB SCH ×3 (05:47→22:11)
[2019-10-08] MEDS: NYSTATIN (MOUTH-THROAT) 500,000 UNITS/5 ML SUSP MT SCH ×4 (06:16→21:33)
[2019-10-08] MEDS: CALCIUM ACETATE 667 MG CAP NG SCH ×3 (06:16→21:33)
[2019-10-08] MEDS: FLUCONAZOLE 200MG/100ML 100 ML IV SCH (08:16)
[2019-10-08 09:00] LABS: Creatinine, Urine 40 mg/dL (30.0-125.0); Sodium Urine 99 mmol/L (40-220)
[2019-10-08] MEDS: MEROPENEM 1GM IVPB 100 ML IV SCH ×2 (09:54→21:33)
[2019-10-08] MEDS: ENOXAPARIN SOD 30 MG/0.3 ML SYRINGE SC SCH (09:54)
[2019-10-08] MEDS: FUROSEMIDE 20 MG/2 ML VIAL IV SCH (09:54)
[2019-10-08] MEDS: PANTOPRAZOLE 40 MG/10 ML VIAL INJ IV SCH (09:54)
[2019-10-08] MEDS: CLOPIDOGREL BISULFATE 75 MG TAB PO SCH (09:55)
[2019-10-08] MEDS: POTASSIUM EFFERVESENT TAB 25 MEQ PO SCH ×2 (09:55→21:33)
[2019-10-08] MEDS: ASPirin 81 mg TAB PO SCH (09:55)
[2019-10-08] MEDS: CARVEDILOL 12.5 MG TAB PO SCH ×2 (09:55→21:34)
[2019-10-08] MEDS ORDERED: FREE WATER GT SCH (10:00)
[2019-10-08] MEDS: DexMEDEtomidine 400 MCG in D5W 5% 96 ML IV SCH (10:13)
[2019-10-08] MEDS ORDERED: methylPREDNISolone SOD SUCC 125 MG/2 ML VL IV ONE (12:45)
[2019-10-08] MEDS ORDERED: EPINEPHrine HCL 0.5 ML NEB ONE (15:17)
[2019-10-09] VITALS (82 sets, daily range): BP systolic 103–155; BP diastolic 68–96
[2019-10-09] MEDS: NITROGLYCERIN 2% OINT 1GM PKG TD SCH ×4 (00:01→17:37)
[2019-10-09] MEDS: InsuLIN REG 1unit/0.01ml Soln (100units/ml) SC SCH ×4 (00:02→17:31)
[2019-10-09] MEDS: hydrALAZINE HCL 10 MG TAB GT SCH ×3 (00:02→12:40)
[2019-10-09] MEDS: ACETYLCYSTEINE 10 %(100MG/ML) SOL 4ML NEB SCH ×4 (02:06→21:47)
[2019-10-09] MEDS: IPRATROPIUM BROM 0.5 MG/2.5ML INH SOL NEB PRN (02:06)
[2019-10-09 05:32] LABS: Basophils # (auto) 0.1 10 ^3/uL (0-0.2); Basophils % (auto) 0.6 % (0.0-2.0); Eosinophils # (auto) 0 10 ^3/uL (0-0.8); Hematocrit 48.6 % (41.0-53.0); Hemoglobin 15.6 g/dL (13.5-17.5); Lymphocytes # (auto) 0.3 10 ^3/uL (0.4-5.4); Lymphocytes % (auto) 2.8 % (10.0-50.0); Mean Corpuscular Hemoglobin 32.3 pg (28.0-32.0); Mean Corpuscular Hgb Conc. 32.1 g/dL (32.0-36.0); Mean Corpuscular Volume 100.6 fL (80.0-100.0); Monocytes # (auto) 0.1 10 ^3/uL (0-1.3); Monocytes % (auto) 1.1 % (0.0-12.0); Neutrophils # (auto) 10.9 10 ^3/uL (1.6-8.6); Neutrophils % (auto) 95.5 % (37.0-80.0); Nucleated Red Blood Cells % 0.1 %; Platelet Count (auto) 129 10^3/uL (140-450); Red Blood Cells 4.83 10^6/uL (4.5-5.90); Red Cell Distribution Width 14.6 % (11.8-14.3); White Blood Cell 11.4 10^3/uL (4.4-10.8)
[2019-10-09 05:44] LABS: Calcium 8.7 mg/dL (8.5-10.1)
[2019-10-09 05:46] LABS: BUN/Creatinine Ratio 34.6
[2019-10-09] MEDS: LEVALBUTEROL HCL 1.25 MG/3 ML NEB NEB SCH ×3 (05:49→21:47)
[2019-10-09] MEDS: ACCU-CHEK COMFORT CURVE STRIP VI SCH ×4 (06:13→17:37)
[2019-10-09] MEDS: CALCIUM ACETATE 667 MG CAP NG SCH ×3 (06:22→21:55)
[2019-10-09] MEDS: NYSTATIN (MOUTH-THROAT) 500,000 UNITS/5 ML SUSP MT SCH ×4 (06:22→22:01)
[2019-10-09] MEDS: FLUCONAZOLE 200MG/100ML 100 ML IV SCH (09:27)
[2019-10-09] MEDS: FUROSEMIDE 20 MG/2 ML VIAL IV SCH (09:27)
[2019-10-09] MEDS: CLOPIDOGREL BISULFATE 75 MG TAB PO SCH (09:28)
[2019-10-09] MEDS: CARVEDILOL 12.5 MG TAB PO SCH ×2 (09:28→21:59)
[2019-10-09] MEDS: ENOXAPARIN SOD 30 MG/0.3 ML SYRINGE SC SCH (09:29)
[2019-10-09] MEDS: POTASSIUM EFFERVESENT TAB 25 MEQ PO SCH (09:29)
[2019-10-09] MEDS: ASPirin 81 mg TAB PO SCH (09:30)
[2019-10-09] MEDS: PANTOPRAZOLE 40 MG/10 ML VIAL INJ IV SCH (09:30)
[2019-10-09] MEDS: MEROPENEM 1GM IVPB 100 ML IV SCH ×2 (09:36→22:03)
[2019-10-09] MEDS: hydrALAZINE HCL 25 MG TAB GT SCH (17:36)
[2019-10-09] MEDS: Nepro With Carb Steady 1 Liter Bottle GT SCH (21:50)
[2019-10-10] VITALS (18 sets, daily range): BP systolic 103–155; BP diastolic 64–92
[2019-10-10] MEDS: ACCU-CHEK COMFORT CURVE STRIP VI SCH ×4 (00:02→16:38)
[2019-10-10] MEDS: hydrALAZINE HCL 25 MG TAB GT SCH ×5 (00:06→23:30)
[2019-10-10] MEDS: NITROGLYCERIN 2% OINT 1GM PKG TD SCH ×4 (00:08→17:56)
[2019-10-10] MEDS: InsuLIN REG 1unit/0.01ml Soln (100units/ml) SC SCH ×4 (00:11→17:55)
[2019-10-10 05:25] LABS: Basophils # (auto) 0 10 ^3/uL (0-0.2); Basophils % (auto) 0.2 % (0.0-2.0); Eosinophils # (auto) 0 10 ^3/uL (0-0.8); Hematocrit 48.9 % (41.0-53.0); Hemoglobin 15.7 g/dL (13.5-17.5); Lymphocytes # (auto) 0.8 10 ^3/uL (0.4-5.4); Lymphocytes % (auto) 3.5 % (10.0-50.0); Mean Corpuscular Hemoglobin 32.2 pg (28.0-32.0); Mean Corpuscular Hgb Conc. 32.2 g/dL (32.0-36.0); Mean Corpuscular Volume 100.3 fL (80.0-100.0); Monocytes # (auto) 0.9 10 ^3/uL (0-1.3); Neutrophils # (auto) 20.9 10 ^3/uL (1.6-8.6); Neutrophils % (auto) 92.3 % (37.0-80.0); Nucleated Red Blood Cells % 0.1 %; Platelet Count (auto) 139 10^3/uL (140-450); Red Blood Cells 4.88 10^6/uL (4.5-5.90); Red Cell Distribution Width 14.9 % (11.8-14.3); White Blood Cell 22.7 10^3/uL (4.4-10.8)
[2019-10-10 05:44] LABS: Calcium 8.8 mg/dL (8.5-10.1); Potassium 4.4 mmol/L (3.5-5.1)
[2019-10-10 05:46] LABS: BUN/Creatinine Ratio 37.1
[2019-10-10] MEDS: CALCIUM ACETATE 667 MG CAP NG SCH ×3 (05:52→21:55)
[2019-10-10] MEDS: NYSTATIN (MOUTH-THROAT) 500,000 UNITS/5 ML SUSP MT SCH ×4 (05:59→22:47)
[2019-10-10] MEDS: IPRATROPIUM BROM 0.5 MG/2.5ML INH SOL NEB PRN (07:28)
[2019-10-10] MEDS: LEVALBUTEROL HCL 1.25 MG/3 ML NEB NEB SCH ×3 (07:28→21:48)
[2019-10-10] MEDS: ACETYLCYSTEINE 10 %(100MG/ML) SOL 4ML NEB SCH ×3 (07:29→21:48)
[2019-10-10] MEDS: FUROSEMIDE 20 MG/2 ML VIAL IV SCH (09:50)
[2019-10-10] MEDS: PANTOPRAZOLE 40 MG/10 ML VIAL INJ IV SCH (09:50)
[2019-10-10] MEDS: CLOPIDOGREL BISULFATE 75 MG TAB PO SCH (09:50)
[2019-10-10] MEDS: CARVEDILOL 12.5 MG TAB PO SCH ×2 (09:50→21:55)
[2019-10-10] MEDS: ASPirin 81 mg TAB PO SCH (09:51)
[2019-10-10] MEDS: POTASSIUM EFFERVESENT TAB 25 MEQ PO SCH (09:51)
[2019-10-10] MEDS: MEROPENEM 1GM IVPB 100 ML IV SCH ×2 (09:51→21:54)
[2019-10-10] MEDS ORDERED: DOCUSATE ORAL LIQUID 100 MG/10 ML UD GT ONE (11:00)
[2019-10-10] MEDS: LABETALOL HCL 5 MG/ML 4ML SYRINGE IV PRN (16:42)
[2019-10-11] MEDS: ACCU-CHEK COMFORT CURVE STRIP VI SCH ×4 (00:16→17:56)
[2019-10-11] MEDS: InsuLIN REG 1unit/0.01ml Soln (100units/ml) SC SCH ×4 (00:28→18:21)
[2019-10-11] MEDS: NITROGLYCERIN 2% OINT 1GM PKG TD SCH ×4 (00:29→18:27)
[2019-10-11] MEDS: Nepro With Carb Steady 1 Liter Bottle GT SCH (02:31)
[2019-10-11 05:00] VITALS: BP 138/108
[2019-10-11] MEDS: hydrALAZINE HCL 25 MG TAB GT SCH ×4 (05:46→23:41)
[2019-10-11] MEDS: NYSTATIN (MOUTH-THROAT) 500,000 UNITS/5 ML SUSP MT SCH ×4 (05:47→22:17)
[2019-10-11] MEDS: CALCIUM ACETATE 667 MG CAP NG SCH ×3 (05:47→22:16)
[2019-10-11] MEDS: LEVALBUTEROL HCL 1.25 MG/3 ML NEB NEB SCH ×3 (06:31→22:48)
[2019-10-11] MEDS: IPRATROPIUM BROM 0.5 MG/2.5ML INH SOL NEB PRN (06:32)
[2019-10-11] MEDS: ACETYLCYSTEINE 10 %(100MG/ML) SOL 4ML NEB SCH ×3 (06:32→22:48)
[2019-10-11 07:13] LABS: Basophils # (auto) 0 10 ^3/uL (0-0.2); Eosinophils # (auto) 0 10 ^3/uL (0-0.8); Hematocrit 48.2 % (41.0-53.0); Hemoglobin 16.1 g/dL (13.5-17.5); Lymphocytes # (auto) 0.5 10 ^3/uL (0.4-5.4); Lymphocytes % (auto) 2.8 % (10.0-50.0); Mean Corpuscular Hgb Conc. 33.3 g/dL (32.0-36.0); Monocytes # (auto) 0.3 10 ^3/uL (0-1.3); Monocytes % (auto) 1.6 % (0.0-12.0); Neutrophils # (auto) 18.7 10 ^3/uL (1.6-8.6); Neutrophils % (auto) 95.6 % (37.0-80.0); Platelet Count (auto) 146 10^3/uL (140-450); Red Blood Cells 4.86 10^6/uL (4.5-5.90); Red Cell Distribution Width 14.4 % (11.8-14.3); White Blood Cell 19.5 10^3/uL (4.4-10.8)
[2019-10-11 07:32] LABS: Calcium 9.2 mg/dL (8.5-10.1)
[2019-10-11 09:17] VITALS: BP 149/99
[2019-10-11] MEDS: DOCUSATE ORAL LIQUID 100 MG/10 ML UD GT SCH (10:00)
[2019-10-11] MEDS: ASPirin 81 mg TAB PO SCH (10:22)
[2019-10-11] MEDS: FLUCONAZOLE 200MG/100ML 100 ML IV SCH (10:22)
[2019-10-11] MEDS: MEROPENEM 1GM IVPB 100 ML IV SCH ×2 (10:22→22:16)
[2019-10-11] MEDS: FUROSEMIDE 20 MG/2 ML VIAL IV SCH (10:22)
[2019-10-11] MEDS: PANTOPRAZOLE 40 MG/10 ML VIAL INJ IV SCH (10:22)
[2019-10-11] MEDS: POTASSIUM EFFERVESENT TAB 25 MEQ PO SCH (10:23)
[2019-10-11] MEDS: CARVEDILOL 12.5 MG TAB PO SCH ×2 (10:23→22:17)
[2019-10-11] MEDS: CLOPIDOGREL BISULFATE 75 MG TAB PO SCH (10:23)
[2019-10-11 13:00] VITALS: BP 140/84
[2019-10-11] MEDS ORDERED: NITROGLYCERIN 2% OINT 1GM PKG TD ONE (15:30)
[2019-10-11 17:17] VITALS: BP 144/88
[2019-10-11 22:00] VITALS: BP 143/88
[2019-10-12] MEDS: ACCU-CHEK COMFORT CURVE STRIP VI SCH ×4 (00:02→17:58)
[2019-10-12] MEDS: InsuLIN REG 1unit/0.01ml Soln (100units/ml) SC SCH ×4 (00:13→18:43)
[2019-10-12] MEDS: NITROGLYCERIN 2% OINT 1GM PKG TD SCH ×5 (00:41→23:59)
[2019-10-12 05:00] VITALS: BP 148/94
[2019-10-12] MEDS: ACETYLCYSTEINE 10 %(100MG/ML) SOL 4ML NEB SCH ×3 (05:38→23:09)
[2019-10-12] MEDS: LEVALBUTEROL HCL 1.25 MG/3 ML NEB NEB SCH ×3 (05:38→23:09)
[2019-10-12] MEDS: NYSTATIN (MOUTH-THROAT) 500,000 UNITS/5 ML SUSP MT SCH ×4 (06:01→22:20)
[2019-10-12] MEDS: CALCIUM ACETATE 667 MG CAP NG SCH (06:01)
[2019-10-12] MEDS: hydrALAZINE HCL 25 MG TAB GT SCH ×4 (06:01→23:56)
[2019-10-12 08:28] LABS: Potassium 3.7 mmol/L (3.5-5.1)
[2019-10-12 08:40] LABS: Albumin 2.2 g/dL (3.4-5.0); Bilirubin, Total 0.8 mg/dL (0.2-1.0); Total Protein 5.6 g/dL (6.4-8.2)
[2019-10-12 09:00] VITALS: BP 159/83
[2019-10-12] MEDS: DOCUSATE ORAL LIQUID 100 MG/10 ML UD GT SCH (09:29)
[2019-10-12] MEDS: MEROPENEM 1GM IVPB 100 ML IV SCH (09:29)
[2019-10-12] MEDS: FLUCONAZOLE 200MG/100ML 100 ML IV SCH (09:29)
[2019-10-12] MEDS: PANTOPRAZOLE 40 MG/10 ML VIAL INJ IV SCH (09:30)
[2019-10-12] MEDS: POTASSIUM EFFERVESENT TAB 25 MEQ PO SCH (09:30)
[2019-10-12] MEDS: CARVEDILOL 12.5 MG TAB PO SCH ×2 (09:30→22:21)
[2019-10-12] MEDS: ASPirin 81 mg TAB PO SCH (09:30)
[2019-10-12] MEDS: FUROSEMIDE 20 MG/2 ML VIAL IV SCH (09:30)
[2019-10-12] MEDS: CLOPIDOGREL BISULFATE 75 MG TAB PO SCH (09:31)
[2019-10-12] MEDS: D5W 5% 1,000 ML IV SCH ×2 (12:27→19:15)
[2019-10-12 12:37] VITALS: BP 154/82
[2019-10-12] MEDS: cefTRIAXone 1GM/50ML D5W 50 ML IV SCH (16:21)
[2019-10-12] MEDS: cloNIDine HCL 0.1 MG TAB PO PRN (16:39)
[2019-10-12 17:00] VITALS: BP 161/98
[2019-10-12 17:06] LABS: Urine Bacteria FEW /hpf (None Seen); Urine Blood 3+ /uL (Negative); Urine Mucus FEW (None Seen); Urine Specific Gravity 1.011 (1.001-1.035); Urine WBC <1 /hpf (0 - 3)
[2019-10-12 22:00] VITALS: BP 158/79
[2019-10-12] MEDS ORDERED: APIXABAN 5 MG TAB PO SCH (22:00)
[2019-10-13] MEDS: InsuLIN REG 1unit/0.01ml Soln (100units/ml) SC SCH ×4 (00:50→18:12)
[2019-10-13 05:00] VITALS: BP 142/87
[2019-10-13] MEDS: D5W 5% 1,000 ML IV SCH ×2 (05:19→16:33)
[2019-10-13] MEDS: ACCU-CHEK COMFORT CURVE STRIP VI SCH ×4 (05:40→18:12)
[2019-10-13] MEDS: hydrALAZINE HCL 25 MG TAB GT SCH ×3 (06:26→18:00)
[2019-10-13] MEDS: LEVALBUTEROL HCL 1.25 MG/3 ML NEB NEB SCH ×3 (06:27→22:48)
[2019-10-13] MEDS: NYSTATIN (MOUTH-THROAT) 500,000 UNITS/5 ML SUSP MT SCH ×4 (06:27→21:02)
[2019-10-13] MEDS: ACETYLCYSTEINE 10 %(100MG/ML) SOL 4ML NEB SCH ×3 (06:27→22:48)
[2019-10-13] MEDS: NITROGLYCERIN 2% OINT 1GM PKG TD SCH ×3 (06:28→18:11)
[2019-10-13 06:38] LABS: Basophils # (auto) 0 10 ^3/uL (0-0.2); Basophils % (auto) 0.2 % (0.0-2.0); Eosinophils # (auto) 0.3 10 ^3/uL (0-0.8); Eosinophils % (auto) 2.3 % (0.0-7.0); Hematocrit 45.2 % (41.0-53.0); Hemoglobin 14.5 g/dL (13.5-17.5); Lymphocytes # (auto) 1.1 10 ^3/uL (0.4-5.4); Lymphocytes % (auto) 7.1 % (10.0-50.0); Mean Corpuscular Volume 100.1 fL (80.0-100.0); Monocytes # (auto) 0.8 10 ^3/uL (0-1.3); Monocytes % (auto) 5.3 % (0.0-12.0); Neutrophils # (auto) 12.7 10 ^3/uL (1.6-8.6); Neutrophils % (auto) 85.1 % (37.0-80.0); Nucleated Red Blood Cells % 0.1 %; Platelet Count (auto) 119 10^3/uL (140-450); Red Blood Cells 4.52 10^6/uL (4.5-5.90); Red Cell Distribution Width 14.4 % (11.8-14.3); White Blood Cell 14.9 10^3/uL (4.4-10.8)
[2019-10-13 06:56] LABS: Albumin 2.1 g/dL (3.4-5.0); Calcium 8.6 mg/dL (8.5-10.1); Potassium 3.7 mmol/L (3.5-5.1)
[2019-10-13 07:06] LABS: BUN/Creatinine Ratio 35.2; Bilirubin, Total 0.9 mg/dL (0.2-1.0); Total Protein 5.3 g/dL (6.4-8.2)
[2019-10-13 09:00] VITALS: BP 146/95
[2019-10-13] MEDS: DOCUSATE ORAL LIQUID 100 MG/10 ML UD GT SCH (09:42)
[2019-10-13] MEDS: cefTRIAXone 1GM/50ML D5W 50 ML IV SCH (09:42)
[2019-10-13] MEDS: PANTOPRAZOLE 40 MG/10 ML VIAL INJ IV SCH (09:42)
[2019-10-13] MEDS: CARVEDILOL 12.5 MG TAB PO SCH ×2 (09:43→21:03)
[2019-10-13] MEDS: CLOPIDOGREL BISULFATE 75 MG TAB PO SCH (09:43)
[2019-10-13] MEDS: ASPirin 81 mg TAB PO SCH (09:43)
[2019-10-13] MEDS: POTASSIUM EFFERVESENT TAB 25 MEQ PO SCH (09:44)
[2019-10-13] MEDS: FLUCONAZOLE 200MG/100ML 100 ML IV SCH (12:19)
[2019-10-13 13:00] VITALS: BP 148/82
[2019-10-13 16:59] VITALS: BP 114/59
[2019-10-13 22:00] VITALS: BP 142/89
[2019-10-14] VITALS (7 sets, daily range): BP systolic 140–153; BP diastolic 71–94
[2019-10-14] MEDS: hydrALAZINE HCL 25 MG TAB GT SCH ×2 (00:15→05:46)
[2019-10-14] MEDS: D5W 5% 1,000 ML IV SCH (00:16)
[2019-10-14] MEDS: ACCU-CHEK COMFORT CURVE STRIP VI SCH ×4 (00:16→17:52)
[2019-10-14] MEDS: NITROGLYCERIN 2% OINT 1GM PKG TD SCH ×4 (00:16→17:54)
[2019-10-14] MEDS: NYSTATIN (MOUTH-THROAT) 500,000 UNITS/5 ML SUSP MT SCH (05:45)
[2019-10-14] MEDS: InsuLIN REG 1unit/0.01ml Soln (100units/ml) SC SCH ×4 (06:00→17:52)
[2019-10-14] MEDS: ACETYLCYSTEINE 10 %(100MG/ML) SOL 4ML NEB SCH ×3 (06:40→22:34)
[2019-10-14] MEDS: LEVALBUTEROL HCL 1.25 MG/3 ML NEB NEB SCH ×3 (06:40→22:34)
[2019-10-14 06:50] LABS: Basophils # (auto) 0 10 ^3/uL (0-0.2); Basophils % (auto) 0.2 % (0.0-2.0); Eosinophils # (auto) 0.3 10 ^3/uL (0-0.8); Eosinophils % (auto) 2.7 % (0.0-7.0); Hematocrit 39.7 % (41.0-53.0); Lymphocytes # (auto) 0.9 10 ^3/uL (0.4-5.4); Lymphocytes % (auto) 7.6 % (10.0-50.0); Mean Corpuscular Hemoglobin 32.4 pg (28.0-32.0); Mean Corpuscular Hgb Conc. 32.7 g/dL (32.0-36.0); Mean Corpuscular Volume 99.1 fL (80.0-100.0); Monocytes # (auto) 0.6 10 ^3/uL (0-1.3); Monocytes % (auto) 5.4 % (0.0-12.0); Neutrophils # (auto) 9.7 10 ^3/uL (1.6-8.6); Neutrophils % (auto) 84.1 % (37.0-80.0); Platelet Count (auto) 101 10^3/uL (140-450); Red Blood Cells 4.01 10^6/uL (4.5-5.90); Red Cell Distribution Width 14.4 % (11.8-14.3); White Blood Cell 11.5 10^3/uL (4.4-10.8)
[2019-10-14 07:10] LABS: Potassium 3.8 mmol/L (3.5-5.1)
[2019-10-14 07:18] LABS: BUN/Creatinine Ratio 31.6; Calcium 8.1 mg/dL (8.5-10.1)
[2019-10-14] MEDS: ASPirin 81 mg TAB PO SCH (09:44)
[2019-10-14] MEDS: CARVEDILOL 12.5 MG TAB PO SCH ×2 (09:44→21:54)
[2019-10-14] MEDS: PANTOPRAZOLE 40 MG/10 ML VIAL INJ IV SCH (09:44)
[2019-10-14] MEDS: DOCUSATE ORAL LIQUID 100 MG/10 ML UD GT SCH (09:44)
[2019-10-14] MEDS: cefTRIAXone 1GM/50ML D5W 50 ML IV SCH (09:44)
[2019-10-14] MEDS: CLOPIDOGREL BISULFATE 75 MG TAB PO SCH (09:45)
[2019-10-14] MEDS: POTASSIUM EFFERVESENT TAB 25 MEQ PO SCH (09:45)
[2019-10-14] MEDS: FLUCONAZOLE 200MG/100ML 100 ML IV SCH (10:30)
[2019-10-14] MEDS ORDERED: LABETALOL HCL 5 MG/ML 4ML SYRINGE IV PRN (13:45)
[2019-10-14] MEDS ORDERED: FREE WATER GT SCH (14:00)
[2019-10-14] MEDS: SOD CHL 0.45% 1,000 ML IV SCH (15:07)
[2019-10-15] MEDS: NITROGLYCERIN 2% OINT 1GM PKG TD SCH ×4 (00:19→17:49)
[2019-10-15] MEDS: ACCU-CHEK COMFORT CURVE STRIP VI SCH ×4 (00:20→18:15)
[2019-10-15] MEDS: InsuLIN REG 1unit/0.01ml Soln (100units/ml) SC SCH ×4 (00:21→18:57)
[2019-10-15] MEDS: SOD CHL 0.45% 1,000 ML IV SCH (00:48)
[2019-10-15 05:21] VITALS: BP 157/87
[2019-10-15 06:07] LABS: Potassium 3.7 mmol/L (3.5-5.1)
[2019-10-15 06:13] LABS: BUN/Creatinine Ratio 29.1; Calcium 7.9 mg/dL (8.5-10.1)
[2019-10-15] MEDS: LEVALBUTEROL HCL 1.25 MG/3 ML NEB NEB SCH ×2 (07:52→14:37)
[2019-10-15] MEDS: ACETYLCYSTEINE 10 %(100MG/ML) SOL 4ML NEB SCH ×2 (07:52→14:37)
[2019-10-15] MEDS: IPRATROPIUM BROM 0.5 MG/2.5ML INH SOL NEB PRN ×2 (07:52→14:37)
[2019-10-15 09:00] VITALS: BP 152/99
[2019-10-15] MEDS ORDERED: CLOP75TA28 PO (09:14)
[2019-10-15] MEDS ORDERED: CARV25TA PO (09:14)
[2019-10-15] MEDS ORDERED: NIFEdipine ER 30 MG TAB PO SCH (10:00)
[2019-10-15] MEDS ORDERED: NIFE90TA49 PO (10:24)
[2019-10-15] MEDS: DOCUSATE ORAL LIQUID 100 MG/10 ML UD GT SCH (10:24)
[2019-10-15] MEDS ORDERED: NITR0.4S29 SL (10:24)
[2019-10-15] MEDS: CARVEDILOL 12.5 MG TAB PO SCH (10:25)
[2019-10-15] MEDS: ASPirin 81 mg TAB PO SCH (10:25)
[2019-10-15] MEDS: CLOPIDOGREL BISULFATE 75 MG TAB PO SCH (10:26)
[2019-10-15 13:00] VITALS: BP 112/72
[2019-10-15 16:49] VITALS: BP 96/59
[2019-10-15 17:55] VITALS: BP 96/59
== END 2019-10-15 19:30 | disposition hospice, home (50) | DRG 870 ==
LOC: EDUNIT# 09:48 → EDBD 09:48 → ER 09:48 → TELE 09:49 → ICU WEST 09-29 10:53 → TELE-WESTW 10-10 23:50
PROVIDERS: ADMIT Internal Medicine; ATTEND Internal Medicine
PROC: 5A1955Z Respiratory Ventilation, Greater than 96 Consecutive Hours (ICD-10-PCS; principal; 2019-09-28)
PROC: 0BH17EZ Insertion of Endotracheal Airway into Trachea, Via Natural or Artificial Opening (ICD-10-PCS; 2019-09-28)
PROC: 02HV33Z Insertion of Infusion Device into Superior Vena Cava, Percutaneous Approach (ICD-10-PCS; 2019-09-29)
DX: A41.9 Sepsis, unspecified organism (principal); N17.0 Acute kidney failure with tubular necrosis; J96.00 Acute respiratory failure, unspecified whether with hypoxia or hypercapnia; G93.41 Metabolic encephalopathy; R65.21 Severe sepsis with septic shock; E43 Unspecified severe protein-calorie malnutrition; I21.A1 Myocardial infarction type 2; J15.6 Pneumonia due to other Gram-negative bacteria; I50.43 Acute on chronic combined systolic (congestive) and diastolic (congestive) heart failure; I47.2 Ventricular tachycardia; N39.0 Urinary tract infection, site not specified; E87.2 Acidosis; D68.69 Other thrombophilia; E87.0 Hyperosmolality and hypernatremia; I69.359 Hemiplegia and hemiparesis following cerebral infarction affecting unspecified side; J98.11 Atelectasis; I82.611 Acute embolism and thrombosis of superficial veins of right upper extremity; I13.0 Hypertensive heart and chronic kidney disease with heart failure and stage 1 through stage 4 chronic kidney disease, or unspecified chronic kidney disease; E87.5 Hyperkalemia; N18.3 Chronic kidney disease, stage 3 (moderate); K57.90 Diverticulosis of intestine, part unspecified, without perforation or abscess without bleeding; M48.061 Spinal stenosis, lumbar region without neurogenic claudication; I25.10 Atherosclerotic heart disease of native coronary artery without angina pectoris; Z51.5 Encounter for palliative care; E11.22 Type 2 diabetes mellitus with diabetic chronic kidney disease; R31.0 Gross hematuria; I25.5 Ischemic cardiomyopathy; E78.5 Hyperlipidemia, unspecified; I48.0 Paroxysmal atrial fibrillation; E87.6 Hypokalemia; Z20.828 Contact with and (suspected) exposure to other viral communicable diseases; Z68.24 Body mass index [BMI] 24.0-24.9, adult; Z79.82 Long term (current) use of aspirin; Z95.5 Presence of coronary angioplasty implant and graft; Z79.02 Long term (current) use of antithrombotics/antiplatelets; Z79.899 Other long term (current) drug therapy
CPT/HCPCS: 36415; 36600; 70450; 71045; 71250; 72125; 74176; 76775; 80048; 80053; 80061; 81001; 82150; 82306; 82550; 82570; 82805; 82962; 83036; 83605; 83690; 83735; 83880; 83935; 83970; 84100; 84133; 84156; 84300; 84443; 84484; 85007; 85025; 85027; 85379; 85610; 85652; 85730; 86141; 87040; 87070; 87077; 87081; 87086; 87205; 87426; 92610; 93005; 93306; 93971; 94002; 94003; 94640; 97110; 97163; 97530; C9113; G0378; J0610; J0696; J1100; J1450; J1815; J2001; J2185; J2248; J2250; J3480; J3490; J7060